=== PATIENT | female | born 2000 | race Caucasian/White ===

== ENCOUNTER 2022-12-22 11:09 | Emergency (ER) | payer OTHER, MEDICAID ==
[~2022-12-22] VITALS: Ht 170.2 cm; Wt 61.2 kg
[2022-12-22 11:17] VITALS: BP 102/22
--- NOTE | 2022-12-22 11:36 | NUR ---
AMBULATED TO CHAIR IN NO DISTRESS.
[2022-12-22] MEDS ORDERED: IBUPROFEN 800 MG TAB PO ONE (12:10)
[2022-12-22] MEDS ORDERED: NAPR-54 PO (12:36)
== END 2022-12-22 13:04 | disposition home or self-care (01) ==
LOC: MED 11:09
DX: M25.561 Pain in right knee (principal); Z79.899 Other long term (current) drug therapy
CPT/HCPCS: 73562; 99283

== ENCOUNTER 2023-06-14 10:45 | Emergency (ER) | payer MEDICAID ==
[~2023-06-14] VITALS: Ht 172.7 cm; Wt 66.7 kg
[~2023-06-14 10:45] MED LIST: NAPR-54 PO
[2023-06-14 11:02] VITALS: BP 100/61; PULSE 86; RESP 20; TEMP 97.7; O2SAT 99
[2023-06-14] MEDS ORDERED: PRED20TA5 PO (11:29)
[2023-06-14] MEDS ORDERED: IBUP-2213 PO (11:29)
[2023-06-14 11:37] VITALS: BP 100/61; PULSE 86; RESP 20; TEMP 97.7; O2SAT 99
== END 2023-06-14 11:37 | disposition home or self-care (01) ==
LOC: MED 10:45
DX: J02.9 Acute pharyngitis, unspecified (principal); Z79.1 Long term (current) use of non-steroidal anti-inflammatories (NSAID)
CPT/HCPCS: 99283